=== PATIENT | female | born 1965 | race Caucasian/White ===

== ENCOUNTER 2019-05-15 07:54 | Day surgery (SDC) | payer OTHER, BC | END 2019-05-15 10:20 | disposition home or self-care (01) | LOC: FASU-ENDO 07:54 ==

== ENCOUNTER 2020-08-13 10:19 | Emergency (ER) | payer OTHER | END 2020-08-13 13:21 | disposition home or self-care (01) | LOC: JVIRT 10:19 | DX: J02.9 Acute pharyngitis, unspecified (principal); Z11.59 Encounter for screening for other viral diseases | CPT/HCPCS: C9803; Q3014-GT; U0003 ==

== ENCOUNTER 2024-07-24 08:00 | Day surgery (SDC) | payer BC ==
[2024-07-21 15:25] VITALS: BMI 29.8
[2024-07-24 10:03] VITALS: PULSE 78; RESP 18; TEMP 97.4
[2024-07-24 10:29] VITALS: BP 120/74
== END 2024-07-24 10:05 | disposition home or self-care (01) ==
LOC: FASU-ENDO 08:00
PROVIDERS: ATTEND Internal Medicine Gastroenterology
PROC: 0DBN8ZX Excision of Sigmoid Colon, Via Natural or Artificial Opening Endoscopic, Diagnostic (ICD-10-PCS; 2024-07-24)
PROC: 0DBL8ZX Excision of Transverse Colon, Via Natural or Artificial Opening Endoscopic, Diagnostic (ICD-10-PCS; 2024-07-24)
PROC: 0DBC8ZX Excision of Ileocecal Valve, Via Natural or Artificial Opening Endoscopic, Diagnostic (ICD-10-PCS; principal; 2024-07-24 08:44)
DX: Z12.11 Encounter for screening for malignant neoplasm of colon (principal); D12.0 Benign neoplasm of cecum; K63.5 Polyp of colon; K57.30 Diverticulosis of large intestine without perforation or abscess without bleeding; Z86.0100 Personal history of colon polyps, unspecified; Z83.719 Family history of colon polyps, unspecified; Z80.0 Family history of malignant neoplasm of digestive organs
CPT/HCPCS: 88305-TC